=== PATIENT | male | born 1975 | race Caucasian/White ===

== ENCOUNTER 2024-06-22 10:29 | Outpatient (CLI) | payer OTHER ==
[2024-06-22] MEDS ORDERED: Barium Sulfate 96% 176 GM BOT (xray ONLY) ONE (10:46)
[2024-06-22] MEDS ORDERED: E-Z-HD 98% W/W 340GM BOT (x-ray ONLY) ONE (10:46)
== END 2024-06-22 10:30 | disposition home or self-care (01) ==
LOC: RAD 10:29
PROVIDERS: ATTEND Otolaryngology Plastic Surgery within the Head & Neck
DX: R13.10 Dysphagia, unspecified (principal)
CPT/HCPCS: 74220